=== PATIENT | female | born 1985 | race Caucasian/White ===

== ENCOUNTER 2017-03-16 | Outpatient (CLI) | payer OTHER ==
--- NOTE | 2017-05-13 06:19 | P.MSEPDOC ---
Presenting Problems - Arrival Data Date of Arrival on Unit: 03/16/17 Time of Arrival on Unit: 13:37 Mode of Transport: Wheelchair - Complaint OB-Reason for Admission/Chief Complaint: Other Comment: pt c/o contractions and dampness in underwear not sure if her water broke or not Medical History - Information : 3 Para: 2 Term: 2 : 0 Abortions: Spontaneous or Elective: 0 Number of Living Children: 2 - Gestational Age Gestational Age by JEFFERY (wks/days): 40 Weeks and 2 Days Review of Systems - Review of Systems Constitutional: No problems Breast: No problems ENT: No problems Cardiovascular: No problems Respiratory: No problems Gastrointestinal: No problems Genitourinary: No problems Musculoskeletal: No problems Neurological: No problems Skin: No problems Vital Signs - Temperature Temperature: 97.3 F Temperature Source: Oral - Pulse Right Brachial Pulse Rate: 105 Pulse Assessment Method: Automatic Cuff - Respirations Respiratory Rate: 20 Oxygen Delivery Method: Room Air - Blood Pressure Right Arm Blood Pressure: 127/74 Blood Pressure Mean: 91 Blood Pressure Source: Automatic Cuff Medical Screen Scoring (Pre) - Cervical Exam Dilation: 1-3 cm = 1 Effacement: More than 50% = 2 Membranes: Intact - Uterine Contractions Frequency: > 5 minutes apart = 1 Duration: N/A Intensity: N/A - Maternal Vital Signs Maternal Temperature: N/A Maternal Blood Pressure: N/A Signs of Preeclampsia: N/A Maternal Respirations: N/A - Maternal Trauma Maternal Trauma: N/A - Assessment Baseline FHR: 140 Heart Rate - NICHD Category: Category I (Normal) = 0 NST: Reactive Station: N/A - Total Score Total Score (Pre): 4 - Level of Risk Level of Risk: Low (0-5) Physician Notification (Pre) - Physician Notified Physician Notified Date: 03/16/17 Physician Notified Time: 15:40 Physician/Practitioner Notifed:: dr phipps Spoke With: dr phipps New Order Received: Yes - Notification Comment Comment: may discharge to home Disposition - Disposition OB Disposition: Discharge to home Discharge Date: 03/16/17 Discharge Time: 15:50 I agree with the RN Medical Screening Exam: Yes Risk & Benefit of care provided described in d/c instruction: Yes Diagnosis: FALSE LABOR AT OR AFTER 37 COMPLETED WEEKS OF GESTATION
== END 2017-03-16 15:50 | disposition home or self-care (01) ==
CPT/HCPCS: 59025; 84112; 99213

== ENCOUNTER 2017-03-17 06:04 | Inpatient (IN) | payer OTHER ==
[2017-03-17 06:28] VITALS: BMI 34.7
[2017-03-17] MEDS ORDERED: METHYLERGONOVINE 0.2 MG/ML 1 ML AMP IM PRN (06:30)
[2017-03-17] MEDS ORDERED: TERBUTALINE 1 MG/ML VIAL SQ PRN (06:30)
[2017-03-17] MEDS ORDERED: OXYTOCIN 20 UNITS/1000 ML NS 1,000 ML IV SCH ×2 (06:30→12:45)
[2017-03-17] MEDS ORDERED: OXYTOCIN 10 UNIT/ML 1 ML VIAL IM PRN (06:30)
[2017-03-17] MEDS ORDERED: LIDOCAINE 1% (PF) 10 MG/ML (30 ML SDV) SQ PRN (06:30)
[2017-03-17] MEDS ORDERED: CARBOPROST TROMETHAMINE 250 MCG/ML 1 ML AMP IM PRN (06:30)
[2017-03-17] MEDS: LACTATED RINGERS 1,000 ML IV SCH ×2 (06:57→09:27)
[2017-03-17 07:17] LABS: Basophils % (A) 1 %; CH 28.4; CHCM 33.1; Eosinophils % (A) 1 %; HCT 34.1 % (34.0-46.0); HDW 3.14; Luc # (Auto) 0.14; Luc % (Auto) 2; Lymphocytes % (A) 15 %; MCH 27.8 pg (25.0-35.0); MCHC 32.2 g/dL (31.0-37.0); MCV 86.3 fL (80.0-100.0); Mean Platelet Volume 8.6; Monocytes # (A) 0.4 k/uL (0-1.0); Monocytes % (A) 7 %; Neutrophils % (A) 75 %; RBC 3.95 m/uL (3.80-5.40); RDW 15.1 % (11.5-15.5); WBC 6.6 k/uL (3.8-10.6)
[2017-03-17] MEDS ORDERED: SODIUM CHLORIDE 0.9% 100 ML BAG ONE (09:15)
[2017-03-17] MEDS ORDERED: BUPIVACAINE (PF) 0.25% 30 ML VIAL ONE (09:15)
[2017-03-17] MEDS ORDERED: fentaNYL (PF) 50 MCG/ML 5 ML AMP ONE (09:15)
[2017-03-17] MEDS ORDERED: BUPIVACAINE (PF) 0.25% 25 ML, fentaNYL (PF) 200 MCG in SODIUM CHLORIDE 0.9% 71 ML EPIDURAL ONE (09:29)
[2017-03-17] MEDS ORDERED: Acetaminophen-Codeine 300-30mg TAB PO PRN ×2 (12:44)
[2017-03-17] MEDS ORDERED: HYDROCORTISONE 2.5% RECTAL CREAM 30 GM TUBE RECTAL PRN (12:44)
[2017-03-17] MEDS ORDERED: diphenhydrAMINE 50 MG CAP PO PRN (12:44)
[2017-03-17] MEDS ORDERED: BENZOCAINE/MENTHOL SPRAY 1 GM/SPRAY AEROSOL TOPICAL PRN (12:44)
[2017-03-17] MEDS ORDERED: ACETAMINOPHEN TAB 325 MG TAB PO PRN (12:44)
[2017-03-17] MEDS ORDERED: diphenhydrAMINE 25 MG CAP PO PRN (12:44)
[2017-03-17] MEDS ORDERED: LANOLIN CREAM 5 GM TUBE TOPICAL PRN (12:44)
[2017-03-17] MEDS ORDERED: WITCH HAZEL 1 EACH MED..PAD TOPICAL PRN (12:44)
--- NOTE | 2017-03-17 17:12 | P.HPOB ---
History of Present Illness H&P Date: 03/17/17 Chief Complaint: Intrauterine at 40 weeks: Induction of labor Arash is a 31-year-old at 40 weeks gestation who ryes for induction of labor. Her course has been uncomplicated and she is feeling well at this time. Pertinent labs did include O+ blood type rubella is immune hepatitis B surface and was negative and group B strep was negative. On physical exam vital signs are stable and afebrile. Heart regular, lungs clear, extremities without pain. Osteopathic exam is unremarkable. Should be noted the heart tones were in the 140s and reactive prior to rupture membranes she was dilated to 4-40 cm 80% effaced -2 station. Assessment intrauterine at term. Plan expect spontaneous vaginal delivery. 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 Smoking Status: Never smoker Past Alcohol Use History: None Reported Past Drug Use History: None Reported - Past Family History Mother Family Medical History: No Reported History Medications and Allergies Home Medications Medication Instructions Recorded Confirmed Type Cetirizine HCl [Zyrtec] 10 mg PO DAILY 03/16/17 03/17/17 History Levothyroxine Sodium [Synthroid] 25 mcg PO DAILY 03/16/17 03/17/17 History Allergies Allergy/AdvReac Type Severity Reaction Status Date / Time azithromycin Allergy Rash/Hives Verified 03/17/17 06:22 [From Zithromax Z-Oskar] Penicillins Allergy Rash/Hives Verified 03/17/17 06:22 Exam Osteopathic Statement: *. No significant issues noted on an osteopathic structural exam other than those noted in the History and Physical/Consult. - Vital Signs Vital signs: Vital Signs Temp Pulse Resp BP Pulse Ox 03/17/17 14:29 72 16 107/67 03/17/17 13:59 75 16 102/63 03/17/17 13:29 72 16 109/62 03/17/17 13:14 79 16 112/64 03/17/17 12:59 82 16 104/53 03/17/17 12:44 16 121/58 03/17/17 12:29 100 16 126/58 03/17/17 06:21 95 F L 94 18 119/71 99 Intake and Output 03/17/17 03/17/17 03/17/17 06:59 14:59 22:59 Intake Total 14.65 Balance 14.65 Intake: Intake, IV Titration 14.65 Amount Oxytocin 20 Units/1000 ml 14.65 Ns 1,000 ml @ 1 MILLIUNIT/MIN 3 mls/hr IV .Q24H [facility] Rx#:[id number] Other: # Voids 0 Weight 117.934 kg Results Result Diagrams: 03/17/17 07:04 Abnormal Lab Results - Last 24 Hours (Table) 03/17/17 Range/Units 07:04 Hgb 11.0 L (11.4-16.0) gm/dL
--- NOTE | 2017-03-17 17:14 | P.PROBDLV ---
Vaginal Delivery Note - . Vaginal Delivery Note: She progressed complete and pushing with spontaneous vaginal delivery of a viable female over a second-degree midline laceration. Following delivery of the head nuchal cord 2 was noted and easily reduced. It should be noted that due to the size the baby and with the anterior shoulder not easily slipping underneath the pubic bone I did deliver the posterior shoulder first by first grasping end of the axilla and elevating and making small twisting motion from baby delivering from right occiput anterior position to where the shoulders were in a transverse plane. I do not think she actually had a shoulder dystocia that as I was Concerned with the size of the baby's head and I did not want to put any significant traction on the anterior shoulder we did affected delivery with a posterior shoulder delivery. Once baby was delivered mouth nares were bulb suctioned and baby was placed on mother's abdomen where the umbilical cord was clamped cut usual fashion. Placenta was then delivered intact and Pitocin was added to the IV. Secondary midline laceration was then repaired with 3-0 Vicryl in usual fashion following Xylocaine for analgesia. Both mother and baby are stable following delivery. scores were 9 and 9 at one and 5 minutes respectively and the weight was 9 lbs. 10 oz.
[2017-03-17] MEDS: SENNOSIDES-DOCUSATE SODIUM 1 EACH TAB PO SCH (23:00)
[2017-03-17] MEDS: IBUPROFEN 600 MG TAB PO PRN (23:02)
--- NOTE | 2017-03-18 07:44 | P.DS ---
Providers Date of admission: 03/17/17 06:04 Expected date of discharge: 03/18/17 Attending physician: Ramo Carson Primary care physician: Stated None Hospital Course: Arash is doing very well day 1. She is involuting, voiding, and she is tolerating her diet. She voices no complaint. Vital signs are stable and afebrile. Heart regular, lungs clear, extremities without pain. She requests discharged home today. Prescription for breast pump is provided provided. She will follow me in 6 weeks. Discharge instructions were thoroughly reviewed and all questions are answered for her prior to proceeding discharge. She is stable for discharge at this time. Patient Condition at Discharge: Good Plan - Discharge Summary New Discharge Prescriptions: No Action Cetirizine HCl [Zyrtec] 10 mg PO DAILY Levothyroxine Sodium [Synthroid] 25 mcg PO DAILY Discharge Medication List Cetirizine HCl [Zyrtec] 10 mg PO DAILY 03/16/17 [History] Levothyroxine Sodium [Synthroid] 25 mcg PO DAILY 03/16/17 [History] Follow up Appointment(s)/Referral(s): Raom Carson DO [Doctor of Osteopathic Medicine] - 1 Week Activity/Diet/Wound Care/Special Instructions: No heavy lifting, limit stairs and driving, and pelvic rest. If any high temperatures, heavy bleeding, or severe pain call my office Discharge Disposition: HOME SELF-CARE
[2017-03-18] MEDS: SENNOSIDES-DOCUSATE SODIUM 1 EACH TAB PO SCH (08:38)
[2017-03-18] MEDS: IBUPROFEN 600 MG TAB PO PRN (08:38)
[2017-03-18 09:06] VITALS: BP 128/76; PULSE 76; RESP 16; TEMP 97.6
== END 2017-03-18 13:30 | disposition home or self-care (01) | DRG 775 ==
LOC: 4FBP 06:04
PROVIDERS: ADMIT Obstetrics & Gynecology; ATTEND Obstetrics & Gynecology
PROC: 10E0XZZ Delivery of Products of Conception, External Approach (ICD-10-PCS; principal; 2017-03-17)
PROC: 0KQM0ZZ Repair Perineum Muscle, Open Approach (ICD-10-PCS; 2017-03-17)
DX: O69.81X0 Labor and delivery complicated by cord around neck, without compression, not applicable or unspecified (principal); E03.9 Hypothyroidism, unspecified; Z37.0 Single live birth; O99.284 Endocrine, nutritional and metabolic diseases complicating childbirth; O70.1 Second degree perineal laceration during delivery; Z3A.40 40 weeks gestation of pregnancy
CPT/HCPCS: 85025; 88307